=== PATIENT | female | born 1955 | race Caucasian/White ===

== ENCOUNTER → 2016-06-01 | Outpatient (CLI) | payer OTHER | LOC: EMI 10:09 → MRI 06-02 11:00 | DX: S49.91XA Unspecified injury of right shoulder and upper arm, initial encounter (principal); M75.101 Unspecified rotator cuff tear or rupture of right shoulder, not specified as traumatic; R93.8 Abnormal findings on diagnostic imaging of other specified body structures | CPT/HCPCS: 73221 ==